=== PATIENT | female | born 1960 | race African-American/Black ===

== ENCOUNTER 2025-03-30 00:02 | Emergency (ER) | payer OTHER ==
[~2025-03-30 00:02] MED LIST: ONDA4TAB9 PO
[2025-03-30 00:10] VITALS: BP 132/96; PULSE 69; TEMP 93.5; O2SAT 99
--- NOTE | 2025-03-30 00:24 | Physician Documentation ---
History of Present Illness ~ Chief Complaint: Knee Pain Stated Complaint: LEFT LEG PAIN Time Seen by MD: 00:23 Primary Medical Doctor: Diane Coles; [facility] Patient presents to the emergency room with one-week history of left knee pain. Pain that has gradual in onset. No prior instances. No calf pain. She was vacationing in [facility] and that has going through the airport when she noticed a slight discomfort in her left knee that has since progress. No fevers. Taking ibuprofen for the pain. No chest pain or shortness of breath. Tetanus witin 5 years: Yes Medication Reconciliation Allergies: Coded Allergies: acetaminophen (Unverified Allergy, Unknown, 03/30/25) hydrocodone (Unverified Allergy, Unknown, 03/30/25) Uncoded Allergies: SURGICAL TAPE (Allergy, Intermediate, 10/24/15) Scheduled PRN Ondansetron* (Zofran Odt*), 4 MG PO Q6H PRN for nausea/vomiting Past Medical History Past Medical History: No Pertinent History Past Surgical History: cholecystectomy, , other Other Past Surgical History: tummy tuck Patient History: (DM Type 2) Diabetes mellitus type 2 FATHER half brother MOTHER FH: gallbladder disease MOTHER Hypertension half brother half brother half brother Other Past Family History: NONCONTRIBUTORY Alcohol Use: None Lives In: Home Review of Systems ROS All review of systems negative except as per HPI Physical Exam Vital Signs: Temperature: 93.5, Source: Temporal, Heart Rate: 69, Respiratory Rate: 15, BP: 132/96, Pulse Oximetry: 99 Physical Exam General: Patient is awake, alert, oriented x4 in no acute distress and well appearing.~ Head: Normocephalic and atraumatic. Eyes: Conjunctival normal. EOMI. PERRL. ENT: Mucous membranes moist. Neck: Supple, trachea is midline. Chest: Clear to auscultation bilaterally without rales, rhonchi, or wheezes. There is no accessory muscle use or retractions. Cardiac: RRR without murmurs, gallops, or rubs. Abd: Soft, nondistended, nontender, with normoactive bowel sounds. No guarding, rebound, or rigidity. Extremities: Left Knee warm to touch with some tenderness to palpation to lateral and medial sides. No tenderness to palpation to popliteal area or calf. Bilaterally neurovascularly intact. Able to flex and extend knee without limitation although some discomfort associated with movement Progress Results/Orders Results/Orders Vital Signs 03/30/25 00:10 Temp 93.5 Pulse 69 Resp 15 B/P (MAP) 132/96 Pulse Ox 99 Medical Decision Making Additional information obtaine: old records Findings Patient presents to the emergency room with left knee pain as per HPI. Differentials include but are not limited to gout, pseudogout, septic arthritis, DVT, Izaguirre's cyst. Given no history of trauma and physical exam I do believe patient is suffering from pseudogout. No calf tenderness chest pain or shortness of breaths and he had not feel she is suffering from DVT. She is able to flex and extend knee with some discomfort but nothing like I would expect with septic arthritis and this is supported by no fevers. ER precautions regarding worsening of symptoms or fevers. History and exam consistent with gout/pseudogout and we will treat accordingly General Diff Dx:Considerations: Include: Abrasion, Contusion, Fracture, Hematoma, Laceration, Malunion, Neurovascular injury, Open fracture, Sprain, Ulcer, Other Knee Diff Dx:Considerations: Include: Abrasion, Arthritis, Contusion, DJD, Fracture-femur, Fracture-fibula, Fracture-patella, Fracture-tibia, Gout, Hematoma, Laceration, Meniscus injury, Neurovascular injury, Open fracture, Rheumatoid arthritis, Septic, Sprain, Sprain-MCL, Sprain-LCL, Sprain-ACL, Sprain-PCL, Other Ankle Diff Dx:Considerations: Include: Abrasion, Arthritis, Contusion, DJD, Fracture-metatarsal, Fracture-fibula, Fracture-tarsal, Fracture-tibia, Gout, Hematoma, Laceration, Malunion, Neurovascular injury, Nonunion, Open fracture, Osteomyelitis, Rheumatoid arthritis, Sprain, Septic, Ulcer, Other Foot Diff Dx:Considerations: Include: Abrasion, Arthritis, Cellulitis, Contusion, Dislocation, DJD, Fracture-metatarsal, Fracture-phalynx, Fracture- tarsal, Gout, Hematoma, Ingrown toenail, Laceration, Malunion, Neurovascular injury, Open fracture, Paronychia, Puncture, Rheumatoid, Sprain, Septic, Subungual hematoma, Ulcer, Other Toe Diff Dx:Considerations: Include: Abrasion, Cellulitis, Contusion, Dislocation, Felon, Fracture, Hematoma, Laceration, Neurovascular injury, Open fracture, Paronychia, Subungual hematoma, Other Departure Disposition: HOME / SELF CARE / HOMELESS Impression: Primary Impression: Pseudogout Condition: Fair Discharge Instructions: Gout Referrals: NO PRIMARY CARE PROVIDER (PCP) Prescriptions Ibuprofen (Ibuprofen) 600 Mg Tablet 1 TAB PO Q6H for pain for 10 Days, #30 TAB 0 Refills with food Prov: SANTHOSH IVY MD 03/30/25 Acetaminophen (Tylenol Extra Strength) 500 Mg Tablet 2 TAB PO Q6H PRN PRN for pain or fever for 3 Days, #30 TAB Prov: SANTHOSH IVY MD 03/30/25 Prednisone* (Prednisone*) 20 Mg Tablet 1 TAB PO DAILY for 5 Days, #5 TAB Prov: SANTHOSH IVY MD 03/30/25 ONDANSETRON ODT 4mg tablet (ONDANSETRON ODT) 4 Mg Tab.rapdis 1 TAB PO Q6H PRN PRN for nausea/vomiting for 4 Days, #10 TAB 0 Refills Prov: SANTHOSH IVY MD 03/30/25 Colchicine (Colchicine) 0.6 Mg Capsule 1 CAP PO see instructions, #6 CAP 0 Refills Two tablets x1. Repeat one tablet 1 hour later. May repeat dose in three days if needed. Prov: SANTHOSH IVY MD 03/30/25 Acetaminophen W/Codeine #3 (ACETAMINOPHEN-COD #3 TABLET) 1 Each Tablet 1 EACH PO Q8H PRN for pain, #20 TAB Prov: SANTHOSH IVY MD 03/30/25 Signature Scribe Signature: No scribe Attestation: The note accurately reflects work and decisions made by me.Santhosh Ivy MD 03/30/25 01:00 SANTHOSH IVY MD Mar 30, 2025 00:24
[2025-03-30] MEDS ORDERED: ACET-1025 PO (00:59)
[2025-03-30] MEDS ORDERED: COLC0.6C3 PO (00:59)
[2025-03-30] MEDS ORDERED: ACET1TAB96 PO (00:59)
[2025-03-30] MEDS ORDERED: PRED20TA PO (00:59)
[2025-03-30] MEDS ORDERED: IBUP600T52 PO (00:59)
[2025-03-30] MEDS ORDERED: ONDA-243 PO (00:59)
[2025-03-30] MEDS: triamcinolone acetonide 40mg/ml inj IM ONE (01:12)
[2025-03-30 01:13] VITALS: RESP 16
[2025-03-30] MEDS: ketorolac trometh 15mg/ml vial 15 MG/ML ML IM ONE (01:13)
== END 2025-03-30 01:31 | disposition home or self-care (01) ==
LOC: ER 00:03
DX: M11.262 Other chondrocalcinosis, left knee (principal); E11.9 Type 2 diabetes mellitus without complications; Z90.49 Acquired absence of other specified parts of digestive tract; Z88.5 Allergy status to narcotic agent; Z88.8 Allergy status to other drugs, medicaments and biological substances; Z98.890 Other specified postprocedural states
CPT/HCPCS: 96372; 99284; J1885; J3301